=== PATIENT | female | born 1960 | race Two or more races ===

== ENCOUNTER 2024-06-29 13:27 | Inpatient (IN) | payer MEDICAID, OTHER ==
[~2024-06-29] VITALS: Ht 162.6 cm; Wt 101.7 kg
--- NOTE | 2024-06-29 14:13 | ED.PDOC ---
History of Present Illness HPI Comments 64-year-old female with PMHx HTN, DM presents with a chief complaint of dizziness x 1 day. Patient states that she has been feeling like she "wants to fall down" due to her dizziness. Patient mentions that she has been feeling this way since yesterday, but it has been worsening the past 3 hours. Patient denies actually falling and states that she caught herself before she could hit the ground. Patient denies LOC or head trauma. Chief Complaint: Dizziness Time Seen by MD: 13:58 Primary Care Provider: DENISE Santos Notes: Medications, Allergies Allergies: Coded Allergies: NO KNOWN ALLERGIES (Unverified , 06/29/24) Information Source: Patient Mode of Arrival: Ambulatory Severity: Moderate Timing: Hours Duration: Since onset Prehospital treatment: None Past Medical History PAST MEDICAL HISTORY: DM, HTN Surgical History: Denies all surgeries OUTREACH PROFESSIONAL History: No Pertinent OUTREACH PROFESSIONAL History Family History Family History: Unknown Social History Smoker: Non-Smoker Alcohol: Denies ETOH Use Drugs: Denies Drug Use Lives In: Home Constitutional: denies: chills, diaphoresis, fatigue, fever, malaise, sweats, weakness, others EENTM: denies: blurred vision, double vision, ear bleeding, ear discharge, ear drainage, ear pain, ear ringing, eye pain, eye redness, hearing loss, mouth pain, mouth swelling, nasal discharge, nose bleeding, nose congestion, nose pain, photophobia, tearing, throat pain, throat swelling, voice changes, others Respiratory: denies: cough, hemoptysis, orthopnea, SOB at rest, shortness of breath, SOB with excertion, stridor, wheezing, others Cardiovascular: denies: chest pain, dizzy spells, diaphoresis, Dyspnea on exertion, edema, irregular heart beat, left arm pain, lightheadedness, palpitations, PND, syncope, others Gastrointestinal: denies: abdomen distended, abdominal pain, blood streaked bowels, constipated, diarrhea, dysphagia, difficulty swallowing, hematemesis, melena, nausea, poor appetite, poor fluid intake, rectal bleeding, rectal pain, vomiting, others Genitourinary: denies: abnormal vagina bleeding, burning, dyspareunia, dysuria, flank pain, frequency, hematuria, incontinence, pain, , vagina d ischarge, urgency, others Neurological: reports: dizziness; denies: fainting, headache, left sided numbness, left sided weakness, numbness, paresthesia, pre-existing deficit, right sided numbness, right sided weakness, seizure, speech problems, tingling, tremors, weakness, others Musculoskeletal: denies: back pain, gout, joint pain, joint swelling, muscle pain, muscle stiffness, neck pain, others Integumetry: denies: bruises, change in color, change in hair/nails, dryness, laceration, lesions, lumps, rash, wounds, others Allergic/Immunocompromised: denies: Difficulty Healing, Frequent Infections, Hives, Itching, others Hematologic/Lymphatic: denies: anemia, blood clots, easy bleeding, easy bruising, swollen glands, others Endocrine: denies: excessive hunger, excessive sweating, excessive thirst, excessive urination, flushing, intolerance to cold, intolerance to heat, unexplained weight gain, unexplained weight loss, others Psychiatric: denies: anxiety, bipolar disorder, depression, hopeless, panic disorder, schizophrenia, sleepless, suicidal, others All Other Systems: Reviewed and Negative Physical Exam General Appearance: Moderate Distress, Normal HEENT: Normal ENT Inspection, Pharynx Normal, TMs Normal Neck: Full Range of Motion, Non-Tender, Normal, Normal Inspection Respiratory: Chest Non-Tender, Lungs Clear, No Accessory Muscle Use, No Respi ratory Distress, Normal Breath Sounds Cardiovascular: No Edema, No JVD, No Murmur, No Gallop, Normal Peripheral Pulses, Regular Rate/Rhythm Breast Exam: Deferred Gastrointestinal: No Organomegaly, Non Tender, No Pulsatile Mass, Normal Bowel Sounds, Soft Genitalia: Deferred Pelvic: Deferred Rectal: Deferred Extremities: No calf tenderness, Normal capillary refill, Normal inspection, Normal range of motion, Non-tender, No pedal edema Musculoskeletal : Apperance: Normal Neurologic: Alert, carton stenciler II-XII nml as Tested, No Motor Deficits, Normal Affect, Normal Mood, No Sensory Deficits Cerebellar Function: Normal Reflexes: Normal Skin: Dry, Normal Color, Warm Peripheral Pulses: 3+ Radial (R), 3+ Radial (L) Lymphatic: No Adenopathy Was a procedure done? Was a procedure done?: No Differential Dx Considerations may include: TIA Electrolyte imbalance X-Ray, Labs, Meds, VS Vital Signs Date Time Temp Pulse Resp B/P (MAP) Pulse Ox O2 Delivery O2 Flow Rate FiO2 06/29/24 13:58 98.1 69 20 187/107 (133) 97 06/29/24 13:54 68 Lab Test 06/29/24 13:50 Range/Units POC Glucose 136 H 70-106 mg/dl Patient alert. Unable to stand without falling. She is feeling weak. Blood pressure elevated. Was given clonidine. Blood sugar elevated. Heart rate within normal limits. Saturation pristine on room air. She will possibly need MRI. Explained to the patient. Continue monitoring. Time of 1ST Reevaluation: 14:28 Reevaluation 1ST: Unchanged Patient Education/Counseling: Diagnosis, Treatment, Prognosis Family Education/Counseling: Diagnosis, Treatment, Prognosis Departure 1 Departure Time of Disposition: 14:24 Impression: Primary Impression: Autonomic disorder Additional Impression: TIA (transient ischemic attack) Disposition: ADMITTED INPATIENT Admit to: Med Surg Condition: Guarded Critical Care Note Critical Care Time?: No Stability Stability form required: No Heart Score Heart Score: Heart Score Response (Comments) Value History N/A 0 EKG N/A 0 Age N/A 0 Risk Factors N/A 0 Troponin N/A 0 Total 0 I personally scribed for PRECIOUS SEO MD ([email or web address]) on 06/29/24 at 14:13. Electronically submitted by Randy Pascual ([email or web address]). PRECIOUS SEO MD Jun 29, 2024 14:13
[2024-06-29 14:36] LABS: Basophils # (auto) 0.1 10 ^3/uL (0-0.2); Basophils % (auto) 1.1 % (0.0-2.0); Eosinophils # (auto) 0.2 10 ^3/uL (0-0.8); Hematocrit 43.4 % (36.0-46.0); Hemoglobin 14.3 g/dL (12.2-16.2); Lymphocytes # (auto) 2.3 10 ^3/uL (0.4-5.4); Lymphocytes % (auto) 26.3 % (10.0-50.0); Mean Corpuscular Hemoglobin 26.4 pg (28.0-32.0); Mean Corpuscular Volume 79.9 fL (80.0-100.0); Monocytes # (auto) 0.7 10 ^3/uL (0-1.3); Monocytes % (auto) 7.7 % (0.0-12.0); Neutrophils # (auto) 5.6 10 ^3/uL (1.6-8.6); Neutrophils % (auto) 62.9 % (37.0-80.0); Nucleated Red Blood Cells % 0.1 %; Platelet Count (auto) 242 10^3/uL (140-450); Red Blood Cells 5.43 10^6/uL (4.0-5.20); Red Cell Distribution Width 14.9 % (11.8-14.3); White Blood Cell 8.9 10^3/uL (4.4-10.8)
[2024-06-29 14:50] LABS: Chloride 104 mmol/L (98-107); Potassium 4.5 mmol/L (3.5-5.1); Sodium 141 mmol/L (136-145)
[2024-06-29 14:51] LABS: Anion Gap 7 (5-15); Calcium 10.3 mg/dL (8.7-10.4); Carbon Dioxide 30 mmol/L (20-31)
[2024-06-29 14:56] LABS: BUN/Creatinine Ratio 25.3 (10.0-20.0); Blood Urea Nitrogen 21 mg/dL (9-23); Glucose 111 mg/dL (74-106)
--- NOTE | 2024-06-29 15:03 | DVH ---
EXAM: CT HEAD WITHOUT CONTRAST HISTORY: dizzy COMPARISON: None TECHNIQUE: Axial images of the head were obtained and reformatted in coronal and sagittal planes. All CT scans at this medical facility are performed using dose modulation techniques as appropriate t o a performed exam including the following: Automated exposure control was utilized; adjustment of th e MA and/or KV according to patient size; and use of iterative reconstruction technique. CT Dose: CTDI volume is 55 mGy. Dose-length product is 936 mGy*cm FINDINGS: There is no evidence of acute intracranial hemorrhage, mass, mass effect midline shift. There is no h ydrocephalus or extra-axial fluid collection. Hightower-white matter differentiation is maintained. Moderate opacification of the right maxillary sinus. The remaining visualized paranasal sinuses and m astoid air cells are clear. The calvarium is intact. IMPRESSION: 1. No acute intracranial process. HS:Y
[2024-06-29] MEDS: IOHEXOL 350 MG/ML 100ML IJ ONE (16:17)
[2024-06-29] MEDS: cloNIDine HCL 0.1 MG TAB PO ONE (16:41)
--- NOTE | 2024-06-29 16:59 | DVH ---
INDICATION: R/O STROKE COMPARISON: None TECHNIQUE:CTA head and neck with intravenous contrast. 3D/MIP image postprocessing was performed and images were used for interpretation and reporting. Radiation Dose Information: CT Dose: CTDI volume is 23.29 mGy. Dose-length product is 770 mGy*cm FINDINGS: CTA neck: Normal 3-vessel origin left-sided aortic arch. Mild atherosclerotic calcification of the aortic arch. Streak artifact from contrast within the right subclavian artery limits evaluation. Otherwise, the bi lateral subclavian arteries, bilateral common carotid arteries and bilateral cervical ICAs are unrema rkable. Bilateral cervical vertebral arteries unremarkable. CTA head: Bilateral ACAS, anterior communicating artery and bilateral MCAs are unremarkable. Mild atherosclerotic calcification of bilateral cavernous and supraclinoid ICAs. Otherwise, bilatera l intracranial ICAs are unremarkable. Bilateral steel burner, bilateral superior cerebellar arteries, basilar artery and bilateral intracranial anne tebral arteries are unremarkable. Left dominant intracranial vertebral artery. Moderate hypoplasia of the right distal intracranial vertebral artery after the origin of the PICA. The dural venous sinuses opacify normally with arachnoid granulation within the left transverse sinus .. No abnormal intracranial enhancement. Other: 1 cm right-sided level 2 lymph node which is most likely reactive. 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 Mucous retention cysts within the right maxillary sinus causing near-complete opacification. Mucous r etention cysts within the left maxillary sinus. Hemangioma within the C7 vertebral body. Schmorl node s of the superior endplate of C6. No destructive osseous lesions are noted. IMPRESSION: No hemodynamically significant stenosis involving the major intracranial and neck vessels.
[2024-06-29] MEDS ORDERED: NITROGLYCERIN 0.4 MG SL TAB SL PRN (18:00)
[2024-06-29] MEDS ORDERED: ONDANSETRON HCL 4 MG/2 ML VIAL IV PRN (18:00)
[2024-06-29] MEDS ORDERED: HYDROcodone-ACET 5/325MG TAB PO PRN (18:00)
[2024-06-29] MEDS ORDERED: ACETAMINOPHEN 325 MG TAB PO PRN (18:00)
[2024-06-29] MEDS ORDERED: MORPHINE SULFATE INJ 2 MG/ml SYRG IV PRN ×2 (18:00)
[2024-06-29] MEDS: SODIUM CHLORIDE 0.9% 1,000 ML IV SCH (19:15)
[2024-06-29] MEDS: ACETAMINOPHEN 325 MG TAB PO PRN (23:24)
[2024-06-29] MEDS: LISINOPRIL 20 MG TAB PO SCH (23:25)
[2024-06-30] VITALS (12 sets, daily range): BP systolic 107–165; BP diastolic 50–90; PULSE 54–96; RESP 16–20; TEMP 97.4–98.1; O2SAT 94–99
[2024-06-30] MEDS ORDERED: LISI30TA8 PO (01:03)
[2024-06-30] MEDS ORDERED: GAB100C PO (01:51)
--- NOTE | 2024-06-30 02:10 | DVHHPRES ---
History of Present Illness Resident Creating Document: CHINMAY CONTRERAS RESIDENT Reason for Visit: near syncope History of Present Illness 64-year-old female with a past medical history of hypertension (HTN) and diabetes mellitus (DM), presenting with dizziness for one day. The patient describes the sensation as "fading" or "wanting to fall," but denies complete loss of consciousness (LOC). She states she can catch herself before hitting the ground. She denies chest pain, shortness of breath, palpitations, or focal neurological deficits but does describe occasional sensations of her heart in her neck. Upon arrival, her blood pressure was 187/107 mmHg, which improved after resumption of her home Lisinopril. Given her symptoms, she was admitted to telemetry for further evaluation. During telemetry monitoring, she had episodes of sinus bradycardia in the 40s, which can explain with her dizziness. Given her symptomatic bradycardia, cardi ology was consulted for further evaluation. Past Medical History: Hypertension Diabetes Mellitus (Type 2) Surgical History: Denies any prior surgeries. Medications: Gabapentin Lisinopril Metformin Social History: Smoking: Non-smoker Alcohol: Denies alcohol use Drugs: Denies drug use Living Situation: Lives independently Review of Systems Constitutional: Yes: Weakness; No: Fever, Chills, Sweats, Malaise, Other Eyes: No: Pain, Vision change, Conjunctivae inflammation, Eyelid inflammation, Other, Redness ENT: No: Ear pain, Ear discharge, Nose pain, Nose discharge, Nose congestion, Mouth pain, Mouth swelling, Throat pain, Throat swelling, Other Respiratory: No: Cough, Dry, Shortness of breath, SOB with excertion, Wheezing, Hemoptysis, Pleuritic Pain, Sputum, Wheezing, Other Cardiovascular: No: Chest Pain, Palpitations, Orthopnea, Paroxysmal Noc. Dyspnea, Edema, Lt Headedness, Other Gastrointestinal: No: Nausea, Vomiting, Abdominal Pain, Diarrhea, Constipation, Melena, Hematochezia, Other Genitourinary: No Dysuria, No Frequency, No Incontinence, No Hematuria, No Retention, No Other Musculoskeletal: No: other, neck pain, shoulder pain, arm pain, back pain, hand pain, leg pain, foot pain Skin: No: Rash, Lesions, Jaundice, Bruising, Other Neurological: Weakness; No: Numbness, Incoordination, Change in speech, Confusion, Seizures, Other Allergies: Coded Allergies: NO KNOWN ALLERGIES (Unverified , 06/29/24) Medications Current Medications Medications Dose Ordered Sig/Marifer Route Start Time Stop Time Status Last Admin Dose Admin Lisinopril 30 mg DAILY PO 06/29/24 22:45 06/29/24 23:25 30 MG Acetaminophen 650 mg Q4HP PRN PO 06/29/24 22:45 06/29/24 23:24 650 MG Exam Vital Signs Vital Signs Date Time Temp Pulse Resp B/P (MAP) Pulse Ox O2 Delivery O2 Flow Rate FiO2 06/30/24 00:02 60 16 99 Room Air* 0 21 06/30/24 00:02 97.4 144/77 (99) 97.4 Exam General: Well-appearing, no acute distress. Vital Signs: BP improved with medication; heart rate noted to be in the 40s during telemetry. HEENT: No head trauma, normal extraocular movements. Cardiovascular: Bradycardic, regular rhythm, no murmurs, normal pulses. Respiratory: Normal breath sounds, no respiratory distress. Neurological: Alert, oriented, no focal deficits, no nystagmus. Labs/Xrays Labs Test 06/29/24 23:39 06/29/24 14:20 06/29/24 13:50 Range/Units Vitamin B12 Level 787 211-911 pg/mL White Blood Count 8.9 4.4-10.8 10^3/uL Red Blood Count 5.43 H 4.0-5.20 10^6/uL Hemoglobin 14.3 12.2-16.2 g/dL Hematocrit 43.4 36.0-46.0 % Mean Corpuscular Volume 79.9 L 80.0-100.0 fL Mean Corpuscular Hemoglobin 26.4 L 28.0-32.0 pg Mean Corpuscular Hemoglobin Concent 33.0 32.0-36.0 g/dL Red Cell Distribution Width 14.9 H 11.8-14.3 % Platelet Count 242 140-450 10^3/uL Mean Platelet Volume 8.9 6.9-10.8 fL Neutrophils (%) (Auto) 62.9 37.0-80.0 % Lymphocytes (%) (Auto) 26.3 10.0-50.0 % Monocytes (%) (Auto) 7.7 0.0-12.0 % Eosinophils (%) (Auto) 2.0 0.0-7.0 % Basophils (%) (Auto) 1.1 0.0-2.0 % Neutrophils # (Auto) 5.6 1.6-8.6 10 ^3/uL Lymphocytes # (Auto) 2.3 0.4-5.4 10 ^3/uL Monocytes # (Auto) 0.7 0-1.3 10 ^3/uL Eosinophils # (Auto) 0.2 0-0.8 10 ^3/uL Basophils # (Auto) 0.1 0-0.2 10 ^3/uL Nucleated Red Blood Cells 0.1 % Sodium Level 141 136-145 mmol/L Potassium Level 4.5 3.5-5.1 mmol/L Chloride Level 104 98-107 mmol/L Carbon Dioxide Level 30 20-31 mmol/L Anion Gap 7 5-15 Blood Urea Nitrogen 21 9-23 mg/dL Creatinine 0.83 0.550-1.02 mg/dL Glomerular Filtration Rate Calc 78 >90 mL/min BUN/Creatinine Ratio 25.3 H 10.0-20.0 Serum Glucose 111 H 74-106 mg/dL Hemoglobin A1c 6.5 H <5.7 % A1C Calcium Level 10.3 8.7-10.4 mg/dL Troponin I High Sensitivity < 3 L </=34 ng/L Thyroid Stimulating Hormone (TSH) 0.85 0.55-4.78 uIU/mL POC Glucose 136 H 70-106 mg/dl Assessment/Plan Assessment/Plan Diagnostic Workup: Labs: CBC: Normal CMP: Normal TSH: Normal HbA1c: 6.5% Imaging: CT Head No acute intracranial process. Moderate opacification of the right maxillary sinus. CTA Head & Neck (R/O Stroke): No significant stenosis in major intracranial or neck vessels. Mild atherosclerotic calcifications noted. No evidence of stroke or abnormal intracranial enhancement. EKG: sinus rhythm Telemetry Findings:Episodes of sinus bradycardia in the 40s, correlating with symptoms. Assessment & Plan: 64-year-old female with PMHx of HTN and DM, presenting with dizziness and near- syncope, found to have symptomatic sinus bradycardia. #Symptomatic Bradycardia Telemetry shows episodes of sinus bradycardia (HR 40s), correlating with dizziness. Patient received clonidine before, keep telemetry to see if the bradycardia improves Cardiology consulted for further evaluation ECHO ordered #Rule out syncope MRI pending #Hypertensive urgency BP improved on clonidine and home Lisinopril. Lisinopril home dose #Diabetes Mellitus Well controlled (A1C 6.5%). Hold on insulin due to bradycardia Case discussed with Dr Chin Plan discussed with: Patient, Other (rn) My Orders Orders - CHINMAY CONTRERAS RESIDENT Procedure Category Date Status Time Admit ADMIT 06/29/24 Transmitted 22:33 Cardiac DIET 06/30/24 Transmitted Diet-2gna,Lofat,Lochol Breakfast Orthostatic Vital ED NURSING 06/29/24 Transmitted Signs Brain Head Wo Contrast MRI 06/29/24 Logged 22:33 Echo 2d Mode Cardiac US 06/29/24 Logged DOP 22:33 Lisinopril Tablet PHA 06/29/24 In Process (Zestril Tablet) 22:45 Acetaminophen Tablet PHA 06/29/24 In Process (Tylenol Tablet) 22:45 Folate (Folic Acid) LAB 06/29/24 In Process 22:53 Vitamin B12 LAB 06/29/24 In Process 22:53 Date of Service: Jun 29, 2024 Billing Provider: KALEY CHIN MD Common Visit Codes: 21214-DULUHVT INP/OBS CARE (HIGH) Secondary Visit Codes: 39312-[id number] CARE PLAN 30 MINUTES CHINMAY CONTRERAS RESIDENT Jun 30, 2024 02:10 KALEY CHIN MD Jul 02, 2024 10:26
[2024-06-30] MEDS ORDERED: METF-370 PO (04:59)
[2024-06-30 06:42] LABS: Basophils # (auto) 0.1 10 ^3/uL (0-0.2); Eosinophils # (auto) 0.2 10 ^3/uL (0-0.8); Mean Corpuscular Volume 80.5 fL (80.0-100.0); Monocytes # (auto) 0.6 10 ^3/uL (0-1.3)
[2024-06-30 06:45] LABS: Basophils % (auto) 1.2 % (0.0-2.0); Eosinophils % (auto) 2.4 % (0.0-7.0); Hematocrit 39.6 % (36.0-46.0); Hemoglobin 13.2 g/dL (12.2-16.2); Lymphocytes # (auto) 2.4 10 ^3/uL (0.4-5.4); Mean Corpuscular Hemoglobin 26.9 pg (28.0-32.0); Mean Corpuscular Hgb Conc. 33.4 g/dL (32.0-36.0); Monocytes % (auto) 7.5 % (0.0-12.0); Neutrophils # (auto) 4.9 10 ^3/uL (1.6-8.6); Neutrophils % (auto) 59.9 % (37.0-80.0); Nucleated Red Blood Cells % 0.3 %; Platelet Count (auto) 214 10^3/uL (140-450); Red Blood Cells 4.91 10^6/uL (4.0-5.20); Red Cell Distribution Width 14.9 % (11.8-14.3); White Blood Cell 8.2 10^3/uL (4.4-10.8)
[2024-06-30] MEDS ORDERED: DEXTROSE (50%) 50ML SYRG IV PRN (07:00)
[2024-06-30] MEDS: InsuLIN REG 1unit/0.01ml Soln (100units/ml) SC SCH (07:00)
[2024-06-30 07:07] LABS: Alanine Aminotransferase 15 U/L (7-40); Albumin 4.2 g/dL (3.2-4.8); Alkaline Phosphatase 71 U/L (46-116); Anion Gap 8 (5-15); BUN/Creatinine Ratio 21.9 (10.0-20.0); Blood Urea Nitrogen 16 mg/dL (9-23); Calcium 9.3 mg/dL (8.7-10.4); Carbon Dioxide 27 mmol/L (20-31); Chloride 105 mmol/L (98-107); Potassium 4.3 mmol/L (3.5-5.1); Sodium 140 mmol/L (136-145); Total Protein 6.7 g/dL (5.7-8.2)
[2024-06-30 07:08] LABS: Aspartate Aminotransferase 11 U/L (13-40); Bilirubin, Total 0.2 mg/dL (0.2-1.0); Glucose 116 mg/dL (74-106)
[2024-06-30] MEDS: ACCU-CHEK COMFORT CURVE STRIP VI SCH (07:19)
[2024-06-30] MEDS ORDERED: ENOXAPARIN SOD 40 MG/0.4 ML SYRINGE SC SCH (10:00)
--- NOTE | 2024-06-30 11:56 | DVH ---
PROCEDURE: MRI BRAIN HEAD WO CONTRAST INDICATION: rule out stroke EXAM DATE: 06/30/2024 10:42 AM COMPARISON: CT head dated 06/29/2024 TECHNIQUE: MRI of the brain without intravenous contrast. FINDINGS: Diffusion weighted images of the brain demonstrate no evidence of acute infarction. There is no evidence of acute intracranial hemorrhage, extra-axial collection, mass effect, midline s hift, herniation or hydrocephalus. The ventricles, sulci and cisterns appear age appropriate. There is nonspecific periventricular and subcortical T2/FLAIR hyperintense white matter changes. Diff erential includes: Demyelinating disease, chronic microangiopathic change, residua of migraine headac hes or other postinflammatory residua. There are no signal abnormalities on the susceptibility weighted sequences. The major vascular flow voids are present. The visualized paranasal sinuses and mastoid air cells are clear. The surrounding soft tissues and o sseous structures are unremarkable. Moderate mucosal opacification of the right maxillary sinus. IMPRESSION: No evidence of acute infarction, intracranial hemorrhage, mass effect or hydrocephalus. There is nonspecific periventricular and subcortical T2/FLAIR hyperintense white matter changes. Diff erential includes: Demyelinating disease, chronic microangiopathic change, residua of migraine headac hes or other postinflammatory residua.
--- NOTE | 2024-06-30 12:28 | DVHINCON2 ---
Date Seen: Jun 30, 2024 Referring Physician MD Jones Reason for Consultation Symptomatic bradycardia History of Present Illness This is a pleasant 64-year-old female who presented to the emergency room with a chief complaint of dizziness for three days. Patient reports she was watching TV when she developed left eye visual disturbance which dissipated promptly. Afterwards she was driving to [employer] when she experienced an episode of transient dizziness with a few seconds. She also complains of left lower extremity paresthesia. States approximately six months ago she experienced a similar event. Denies chest pain, palpitations, diaphoresis, or syncopal events. Upon arrival to the emergency room she was found with a systolic blood pressure in the 180s mmHg. States she is compliant with her lisinopril therapy at home. She underwent a 12 lead electrocardiogram revealing a normal sinus rhythm. classroom monitor reviewed indicating a sinus bradycardia rhythm with a heart rate as low as 40 bpm at rest. There were no high-degree AV blocks or sinus pauses identified. During assessment the patient experienced a transient episode of dizziness with portable monitor revealing a normal sinus rhythm with a HR at 75 bpm. Significant medical history includes hypertension on lisinopril therapy, [id number]-kahaijqtj diabetes mellitus, peripheral neuropathy, and morbid obesity. Past Medical History Past medical history reviewed. No other significant than mentioned above. Past Surgical History Tonsillectomy BTL Family History: Diabetes mellitus G8 FATHER G8 BROTHER G8 SISTER Family History Family history reviewed. Not significant for cardiac disease. Social History Denies the use of illicit drugs, alcohol, or tobacco use. Allergies: Coded Allergies: NO KNOWN ALLERGIES (Unverified , 06/29/24) Home Meds Reported Medications Metformin Hydrochloride (Metformin Hcl) 500 Mg Tab, 2 TAB PO BID for 30 Days, MG 06/30/24 Gabapentin (Gabapentin) 100 Mg Cap, 1 CAP PO BID 06/30/24 Lisinopril (Lisinopril) 30 Mg Tab, 1 TAB PO DAILY 06/30/24 Home Meds Home medications reviewed. Current Medications Current Medications Medications (Trade) Dose Ordered Sig/Marifer Route PRN Reason Start Time Stop Time Status Last Admin Sodium Chloride 1,000 ml @ 120 mls/hr Q8H20M IV 06/29/24 18:00 06/29/24 20:04 DC Acetaminophen/ Hydrocodone Bitart ([place] 5/325MG Tab) 1 tab Q4HP PRN PO MODERATE PAIN (4-6 PAIN SCALE) 06/29/24 18:00 06/29/24 20:04 DC Ondansetron HCl (Zofran) 4 mg Q4HP PRN IV NAUSEA / VOMITING 06/29/24 18:00 06/29/24 20:04 DC Enoxaparin Sodium (Lovenox) 40 mg DAILY SC 06/30/24 10:00 06/29/24 20:04 DC Acetaminophen (Tylenol Tablet) 650 mg Q6HP PRN PO PAIN SCALE 1-3 OR TEMP>100.4 06/29/24 18:00 06/29/24 20:04 DC Morphine Sulfate 2 mg Q4HPRN PRN IV SEVERE PAIN (7-10 PAIN SCALE) 06/29/24 18:00 06/29/24 20:04 DC Nitroglycerin (Ntrostat Sublingual) 0.4 mg Q5MINP PRN SL FOR CHEST PAIN 06/29/24 18:00 06/29/24 20:04 DC Morphine Sulfate 2 mg Q30M PRN IV FOR CHEST PAIN 06/29/24 18:00 06/29/24 20:04 DC Lisinopril (Zestril Tablet) 30 mg DAILY PO 06/29/24 22:45 06/29/24 23:25 Acetaminophen (Tylenol Tablet) 650 mg Q4HP PRN PO PAIN SCALE 1-3 OR TEMP>100.4 06/29/24 22:45 06/29/24 23:24 Diagnostic Test (Pha) (Accu-Chek Comfort Curve T) 1 strip ACHS 06/30/24 07:00 06/30/24 11:47 Insulin Human Regular (InsuLIN R) ACHS SC 06/30/24 07:00 Dextrose 50 ml UD PRN IV Blood Sugar LESS THAN 60 06/30/24 07:00 Review of Systems Constitutional: No symptom reported Ears, Nose, & Throat: No symptom reported Eyes: No symptom reported Neurological: Dizziness, left eye visual disturbance Pulmonary/Respiratory: No symptom reported Cardiovascular: No symptom reported Gastrointestinal: No symptom reported Genitourinary: No symptom reported Musculoskeletal: LLE paresthesia Skin: No symptom reported Psychiatric: No symptom reported Endocrine: No symptom reported Hemotologic/Lymphatic: No symptom reported Vital Signs Vital Signs Date Time Temp Pulse Resp B/P (MAP) Pulse Ox O2 Delivery O2 Flow Rate FiO2 06/30/24 09:00 98.0 71 18 132/63 (86) 97 98.0 06/30/24 08:15 Room Air* 0 21 Physical Exam General Appearance: Cooperative. Well developed. Morbidly obese. In no acute distress Head Exam: Normal inspection Neck Exam: Normal inspection. Non-tender. Normal alignment Pulmonary/Respiratory: Chest non-tender. Clear bilateral breath sounds Cardiovascular/Chest: Regular rate and rhythm. S1, S2. NS status/sinus br adycardia. No murmurs. No JVD. Peripheral Pulses: 2+ Radial (R). 2+ Radial (L). 2+ Pedal (R). 2+ Pedal (L) Abdominal Exam: Normal bowel sounds. Soft. Nontender. No hepatospenomegaly. No masses Ankle Exam: Negative ankle edema Lower extremities: Negative lower extremity edema Neuro/Mental Status: A&O x4. Coherent Thoughts/Psych: Normal thought pattern. Appropriate mood and affect. Good judgement and insight Appearance: In no acute distress Skin Exam: Normal inspection. Normal color. Warm. Dry Labs/Diagnostic Data Labs Test 06/30/24 06:04 06/29/24 23:39 06/29/24 14:20 06/29/24 13:50 Range/Units White Blood Count 8.2 4.4-10.8 10^3/uL Red Blood Count 4.91 4.0-5.20 10^6/uL Hemoglobin 13.2 12.2-16.2 g/dL Hematocrit 39.6 36.0-46.0 % Mean Corpuscular Volume 80.5 80.0-100.0 fL Mean Corpuscular Hemoglobin 26.9 L 28.0-32.0 pg Mean Corpuscular Hemoglobin Concent 33.4 32.0-36.0 g/dL Red Cell Distribution Width 14.9 H 11.8-14.3 % Platelet Count 214 140-450 10^3/uL Mean Platelet Volume 8.8 6.9-10.8 fL Neutrophils (%) (Auto) 59.9 37.0-80.0 % Lymphocytes (%) (Auto) 29.0 10.0-50.0 % Monocytes (%) (Auto) 7.5 0.0-12.0 % Eosinophils (%) (Auto) 2.4 0.0-7.0 % Basophils (%) (Auto) 1.2 0.0-2.0 % Neutrophils # (Auto) 4.9 1.6-8.6 10 ^3/uL Lymphocytes # (Auto) 2.4 0.4-5.4 10 ^3/uL Monocytes # (Auto) 0.6 0-1.3 10 ^3/uL Eosinophils # (Auto) 0.2 0-0.8 10 ^3/uL Basophils # (Auto) 0.1 0-0.2 10 ^3/uL Nucleated Red Blood Cells 0.3 % Sodium Level 140 136-145 mmol/L Potassium Level 4.3 3.5-5.1 mmol/L Chloride Level 105 98-107 mmol/L Carbon Dioxide Level 27 20-31 mmol/L Anion Gap 8 5-15 Blood Urea Nitrogen 16 9-23 mg/dL Creatinine 0.73 0.550-1.02 mg/dL Glomerular Filtration Rate Calc 91 >90 mL/min BUN/Creatinine Ratio 21.9 H 10.0-20.0 Serum Glucose 116 H 74-106 mg/dL Calcium Level 9.3 8.7-10.4 mg/dL Total Bilirubin 0.2 0.2-1.0 mg/dL Aspartate Amino Transferase (AST) 11 L 13-40 U/L Alanine Aminotransferase (ALT) 15 7-40 U/L Alkaline Phosphatase 71 46-116 U/L Total Protein 6.7 5.7-8.2 g/dL Albumin 4.2 3.2-4.8 g/dL Vitamin B12 Level 787 211-911 pg/mL Hemoglobin A1c 6.5 H <5.7 % A1C Troponin I High Sensitivity < 3 L </=34 ng/L Thyroid Stimulating Hormone (TSH) 0.85 0.55-4.78 uIU/mL POC Glucose 136 H 70-106 mg/dl Assessment Sinus bradycardia Hypertensive urgency Rule out structural heart disease Zui-lazaqlu-vcljpkegc diabetes mellitus Peripheral neuropathy Morbid obesity Plan/Recommendation (Dr. Solis) The patient presents with sinus bradycardia at rest and an event of dizziness during assessment with portable hall monitor revealing a heart rate in the 70s bpm. classroom monitor reviewed without evidence of high-degree atrioventricular blocks or sinus pauses. Doubt symptomatic bradycardia. Symptoms highly suspected to be secondary to hypertensive urgency. Continue aggressive blood pressure control and avoid AV horacio blocking agents. We recommend an outpatient event monitor for further evaluation if deemed necessary. Patient reports she is scheduled to follow up with Dr. Anna, associate media planner, on 07/03/24. We will continue further cardiac evaluation with a transthoracic echocardiogram to rule out structural heart disease. In the setting of an unremarkable echocardiogram, there is no further cardiac workup indicated at this time. Thank you for allowing us to participate in this patient's care. Please call if you have any questions or concerns. This medical document was created using an electronic medical record system with voice recognition software and computerized dictation system. Although this document has been carefully reviewed, there might still be some phonetic and typographical errors. Occasional wrong-word or ``sound-alike substitutions may have occurred due to the inherent limitations of voice recognition software. These areas are purely typographical due to imperfections of the software programs and do not reflect any compromise in the patient's medical care. Please read the chart carefully and recognize, using context, where these substitutions have occurred. Plan discussed with: Patient, Other NYHA Physical activity limitations: NA Date of Service: Jun 30, 2024 Billing Provider: OBIE CEJA Cardiology Common Codes: [id number] INP/OBS CARE (High) OBIE CEJA Jun 30, 2024 12:28
[2024-06-30] MEDS: ENOXAPARIN SOD 40 MG/0.4 ML SYRINGE SC ONE (12:57)
[2024-06-30] MEDS: hydrALAZINE HCL 20 MG/ML VL IV PRN (12:58)
--- NOTE | 2024-06-30 16:23 | DVHSR ---
APPROVED REPORT EXAM: Two-dimensional and M-mode echocardiogram with Doppler and color Doppler. Blood Pressure: 138/76 mmHg INDICATION Rule out CHF RISK FACTORS Height: 5'4", Weight: 221 DIMENSIONS LVDd3.9 (3.8-5.7cm)LA (2D)4.1 (1.9-4.0cm)Aortic Root3.2 (2.0-3.7cm) LVDs2.6 (2.5-4.0cm)LA (MM) (1.9-4.0cm)Aortic Cusp Exc1.4 (1.5-2.0cm) EF (%) 65.0 (55-70%)Rt. Atrium3.7 (1.9-4.0cm)Asc. Aorta cm IVSd1.1 (0.7-1.1cm)RV (D)4.1 (1.8-2.4cm) PWd1.0 (0.7-1.1cm) Mitral Valve MitralMitral Stenosis E wave0.87m/sMV Mean GR.mmHg A wave1.21m/sMV Peak GR.mmHg E/A ratio0.72D MVAcm2 DECEL [id number] 1/2 Timems Aortic Valve Aortic ValveAortic Stenosis V11.83m/Radha Mean GR.12mmHg V22.41m/Radha Peak GR.23mmHg LVOT Diameter1.9 (1.8-2.4cm)Doppler AVA2.15cm2 Pulmonic Valve V21.33m/s Tricuspid Valve TR Velocity3.00m/s [id number] Conclusion Technically good study. Sinus rhythm. Left atrial enlargement. RV enlargement. Mild aortic sclerosis. Mild mitral annular calcification. Left ventricular function is preserved at 60% with normal RV function. [id number] TR. No pericardial effusion masses or vegetations
[2024-06-30] MEDS ORDERED: hydrALAZINE HCL 20 MG/ML VL IV PRN (17:30)
--- NOTE | 2024-06-30 19:08 | DVHPN2 ---
Subjective 06/30 on admit there was concern of possibly this being a stroke and MRI is done which is negative for stroke but all it was positive for demyelination enhancements which will require neurology review. Cardiology is on board echo is being done. Cardiology believes this is asymptomatic bradycardia patient appears to be doing well in terms of Cardiology aspect and cardiology signs of. Echo pending. Patient has severe lower extremity diabetic neuropathy which could be piece of the puzzle. We will control pain with gabapentin incomplete workup. PT eval pending. Reviewed: H&P Changes from previous H/P or p: No Changes General: Per HPI Eyes: No Pain, No Vision change, No Conjunctivae inflammation, No Eyelid inflammation, No Other, No Redness ENT: No Ear pain, No Ear discharge, No Nose pain, No Nose discharge, No Nose congestion, No Mouth pain, No Mouth swelling, No Throat pain, No Throat swelling, No Other Cardiovascular: No Chest Pain, No Palpitations, No Orthopnea, No Paroxysmal Noc. Dyspnea, No Edema, No Lt Headedness, No Other Respiratory: No Cough, No Dry, No Shortness of breath, No SOB with excertion, No Wheezing, No Hemoptysis, No Pleuritic Pain, No Sputum, No Other Gastrointestinal: No Nausea, No Vomiting, No Abdominal Pain, No Diarrhea, No Constipation, No Melena, No Hematochezia, No Other Genitourinary: No Dysuria, No Frequency, No Incontinence, No Hematuria, No Retention, No Other Musculoskeletal: No other, No neck pain, No shoulder pain, No arm pain, No back pain, No hand pain, No leg pain, No foot pain Skin: No Rash, No Lesions, No Jaundice, No Bruising, No Other Objective Vitals Vital Signs Date Time Temp Pulse Resp B/P (MAP) Pulse Ox O2 Delivery O2 Flow Rate FiO2 06/30/24 17:00 97.5 66 20 165/90 (115) 98 97.5 06/30/24 08:15 Room Air* 0 21 Intake/Output Intake and Output 06/30/24 07:00 Intake Total 450 ml Balance 450 ml Intake Oral 450 ml # Voids 3 Exam GEN: Healthy appearing, well-developed, NAD. HEENT: NC/AT; MMM. CV: RRR, no m/r/g. LUNGS: CTAB, no w/r/c. ABD: Soft, NT/ND, NBS, no masses or organomegaly. EXT: skin Warm, well perfused. no rashes. No clubbing, cyanosis, or edema. NEURO: Ambulating with no limitations. No focal deficits. Medications Current Medications Medications Dose Ordered Sig/Marifer Route Start Time Stop Time Status Last Admin Dose Admin Lisinopril 30 mg DAILY PO 06/29/24 22:45 06/29/24 23:25 30 MG Acetaminophen 650 mg Q4HP PRN PO 06/29/24 22:45 06/30/24 17:58 650 MG Diagnostic Test (Pha) 1 strip ACHS 06/30/24 07:00 06/30/24 16:52 1 STRIP Insulin Human Regular ACHS SC 06/30/24 07:00 Dextrose 50 ml UD PRN IV 06/30/24 07:00 Enoxaparin Sodium 40 mg DAILY SC 07/01/24 10:00 Hydralazine HCl 10 mg Q6HR PRN IV 06/30/24 17:30 Gabapentin 300 mg TID PO 06/30/24 22:00 Laboratory Results Laboratory Tests 06/30/24 06:04 Chemistry Test 06/30/24 06:04 Albumin 4.2 g/dL (3.2-4.8) Calcium Level 9.3 mg/dL (8.7-10.4) Total Protein 6.7 g/dL (5.7-8.2) LFT Test 06/30/24 06:04 Alanine Aminotransferase (ALT) 15 U/L (7-40) Alkaline Phosphatase 71 U/L (46-116) Aspartate Amino Transferase (AST) 11 U/L (13-40) L Total Bilirubin 0.2 mg/dL (0.2-1.0) Labs and/or images reviewed: Labs reviewed by me, Image(s) reviewed by me Assessment/Plan Assessment/Plan 06/30 on admit there was concern of possibly this being a stroke and MRI is done which is negative for stroke but all it was positive for demyelination enhancements which will require neurology review. Cardiology is on board echo is being done. Cardiology believes this is asymptomatic bradycardia patient appears to be doing well in terms of Cardiology aspect and cardiology signs of. Echo pending. Patient has severe lower extremity diabetic neuropathy which could be piece of the puzzle. We will control pain with gabapentin incomplete workup. PT eval pending. Sinus bradycardia, asymptomatic MRI imaging enhancements, stroke ruled out Hypertensive urgency Rule out structural heart disease Drr-gcyxnir-ooxvpepqh diabetes mellitus Peripheral neuropathy Morbid obesity - continue pain management -start gabapentin 300 t.i.d. Continuing diet Neurology evaluation PT evaluation pending Echo pending. Diet diabetic DVT prophylaxis with Lovenox GI prophylaxis tolerating diet Med tele Full code Plan discussed with: Patient My Orders Orders - KYLER TRISTAN MD Procedure Category Date Status Time * Neurology Consult CONS 06/30/24 Transmitted 17:05 Hydralazine Injection PHA 06/30/24 In Process (Apresoline Inject 17:30 Gabapentin Capsule PHA 06/30/24 In Process (Neurontin Capsule) 22:00 Date of Service: Jun 30, 2024 Billing Provider: KYLER TRISTAN MD Common Visit Codes: [id number] INP/OBS CARE(HIGH) KYLER TRISTAN MD Jun 30, 2024 19:08
[2024-06-30] MEDS: GABAPENTIN 300 MG CAP PO SCH (21:59)
--- NOTE | 2024-06-30 22:34 | DVHINCON2 ---
Date of service: Jun 30, [address] Robert Vidales Reason for Consultation MR with abnormal fighting History of Present Illness Ms. Reid is a 64 years old right-handed female with a history of hypertension, diabetes, she came to the [facility] on 06/29/2024 with a chief company of passing out. At that time, she was alert and fully oriented, she provided the following history As a workup for her syncopal event/dizziness, her MRI brain scan showed small amount of scattered T2/FLAIR abnormality Since 06/26/2024, the patient was had for dizzy spells, one was on 06/27/2024, one was on 06/28/24, two was on 06/29/2024, the spells happened when she was sitting, standing, received associated with blurry vision, hot flash, increased sweating, chest pain, and two of them the patient was passed out for a few seconds, waking up conscious to everything Telemetry captured bradycardia with heart rate @ 40/min Since around 08/2023, every night the patient was has a discomfort in the legs with the urge to move, and movement does not help the symptoms briefly, as a result, she can not fall asleep easily. She was given gabapentin 100 mg hs at home which does not help She was thinks she may snore, her sleep is non-refreshing, she has excessive daytime fatigue and sleepiness In the hospital, bradycardia captured with heart rate down to 40 per minute CBC, 06/30/2024: Unremarkable CMP, 06/30/2024: Unremarkable Vitamin B12, 06/29/2019 5:787 TSH, 06/29/2024: 0.85 Echocardiogram, 06/30/2024: Technically good study. Sinus rhythm. Left atrial enlargement. RV enlargement. Mild aortic sclerosis. Mild mitral annular calcification. Left ventricular function is preserved at 60% with normal RV function. [id number] TR. No pericardial effusion masses or vegetations MRI head, 06/30/2024: No evidence of acute infarction, intracranial hemorrhage, mass effect or hydrocephalus. There is nonspecific periventricular and subcortical T2/FLAIR hyperintense white matter changes. Differential includes: Demyelinating disease, chronic microangiopathic change, residua of migraine headaches or other postinflammatory residua Past Medical History Hypertension, diabetes, obesity Past Surgical History Tonsillectomy Family History: Diabetes mellitus G8 FATHER G8 BROTHER G8 SISTER Family History Diabetes Social History She was no history of tobacco smoking, alcohol/drug abuse Allergies: Coded Allergies: NO KNOWN ALLERGIES (Unverified , 06/29/24) Home Meds Reported Medications Metformin Hydrochloride (Metformin Hcl) 500 Mg Tab, 2 TAB PO BID for 30 Days, MG 06/30/24 Gabapentin (Gabapentin) 100 Mg Cap, 1 CAP PO BID 06/30/24 Lisinopril (Lisinopril) 30 Mg Tab, 1 TAB PO DAILY 06/30/24 Current Medications Current Medications Medications (Trade) Dose Ordered Sig/Marifer Route PRN Reason Start Time Stop Time Status Last Admin Enoxaparin Sodium (Lovenox) 40 mg DAILY SC 06/30/24 10:00 06/29/24 20:04 DC Lisinopril (Zestril Tablet) 30 mg DAILY PO 06/29/24 22:45 06/29/24 23:25 Acetaminophen (Tylenol Tablet) 650 mg Q4HP PRN PO PAIN SCALE 1-3 OR TEMP>100.4 06/29/24 22:45 06/30/24 17:58 Diagnostic Test (Pha) (Accu-Chek Comfort Curve T) 1 strip ACHS 06/30/24 07:00 06/30/24 22:19 Insulin Human Regular (InsuLIN R) ACHS SC 06/30/24 07:00 Dextrose 50 ml UD PRN IV Blood Sugar LESS THAN 60 06/30/24 07:00 Hydralazine HCl (Apresoline Injection) 10 mg Q6HR PRN IV SBP>150 06/30/24 12:50 06/30/24 17:31 DC 06/30/24 12:58 Enoxaparin Sodium (Lovenox) 40 mg DAILY SC 07/01/24 10:00 Hydralazine HCl (Apresoline Injection) 10 mg Q6HR PRN IV SBP>170 06/30/24 17:30 Gabapentin (Neurontin Capsule) 300 mg TID PO 06/30/24 22:00 06/30/24 21:59 Review of Systems As above, the other systems are negative Vital Signs Vital Signs Date Time Temp Pulse Resp B/P (MAP) Pulse Ox O2 Delivery O2 Flow Rate FiO2 06/30/24 21:00 75 156/85 (108) 06/30/24 21:00 97.7 18 95 97.7 06/30/24 08:15 Room Air* 0 21 Physical Exam GENERAL EXAM: General: the patient is well developed and nourished. No acute distress. HEENT: Normocephalic, neck is supple, no carotid bruits. No mass RESPIRATORY: Normal respiratory effort with symmetrical lung expansion. Lungs clear to auscultation. CARDIOVASCULAR: Regular rate and rhythm with no murmurs. S1, S2. ABDOMEN: Soft, nontender, normal bowel sound NEUROLOGICAL: MENTAL STATUS: Awake and alert. Oriented to person, place, time and general circumstances. Able to give personal history. SPEECH, LANGUAGE, HIGHER CORTICAL FUNCTION: no aphasia or dysathria. CRANIAL NERVES: #2: Intact visual pike to confrontation. The optic discs were sharp. #3,4,6: Pupils are equal, round and reactive. EOMs full and conjugate. No nystagmus. #5: Facial sensation intact in all three divisions bilaterally. Mandibular strength intact. #7: Facial muscles symmetrical and strength intact. #8: Hearing grossly normal to voice. #9,10: Uvula and soft palate rise in the midline. Swallow and voice are normal. #11: Trapezius and sternomastoid strength intact bilaterally. #12: Tongue midline. No fasciculations or atrophy. SENSATION: Sensation to touch and pinprick is normal. MOTOR: Normal tone in the upper and lower extremity. Normal muscle bulk. No fasciculations. No abnormal movements or posturing. Muscle strength of the major groups in the upper extremities is 5/5. Muscle strength of the major groups in the lower extremities is 5/5. REFLEXES: Deep tendon reflexes are symmetrical. No pathological reflexes. CEREBELLAR/COORDINATION: Finger to nose is normal bilaterally. GAIT/STATION: deferred. Labs/Diagnostic Data Labs Test 06/30/24 22:06 06/30/24 06:04 06/29/24 23:39 06/29/24 14:20 Range/Units POC Glucose 141 H 70-106 mg/dl White Blood Count 8.2 4.4-10.8 10^3/uL Red Blood Count 4.91 4.0-5.20 10^6/uL Hemoglobin 13.2 12.2-16.2 g/dL Hematocrit 39.6 36.0-46.0 % Mean Corpuscular Volume 80.5 80.0-100.0 fL Mean Corpuscular Hemoglobin 26.9 L 28.0-32.0 pg Mean Corpuscular Hemoglobin Concent 33.4 32.0-36.0 g/dL Red Cell Distribution Width 14.9 H 11.8-14.3 % Platelet Count 214 140-450 10^3/uL Mean Platelet Volume 8.8 6.9-10.8 fL Neutrophils (%) (Auto) 59.9 37.0-80.0 % Lymphocytes (%) (Auto) 29.0 10.0-50.0 % Monocytes (%) (Auto) 7.5 0.0-12.0 % Eosinophils (%) (Auto) 2.4 0.0-7.0 % Basophils (%) (Auto) 1.2 0.0-2.0 % Neutrophils # (Auto) 4.9 1.6-8.6 10 ^3/uL Lymphocytes # (Auto) 2.4 0.4-5.4 10 ^3/uL Monocytes # (Auto) 0.6 0-1.3 10 ^3/uL Eosinophils # (Auto) 0.2 0-0.8 10 ^3/uL Basophils # (Auto) 0.1 0-0.2 10 ^3/uL Nucleated Red Blood Cells 0.3 % Sodium Level 140 136-145 mmol/L Potassium Level 4.3 3.5-5.1 mmol/L Chloride Level 105 98-107 mmol/L Carbon Dioxide Level 27 20-31 mmol/L Anion Gap 8 5-15 Blood Urea Nitrogen 16 9-23 mg/dL Creatinine 0.73 0.550-1.02 mg/dL Glomerular Filtration Rate Calc 91 >90 mL/min BUN/Creatinine Ratio 21.9 H 10.0-20.0 Serum Glucose 116 H 74-106 mg/dL Calcium Level 9.3 8.7-10.4 mg/dL Total Bilirubin 0.2 0.2-1.0 mg/dL Aspartate Amino Transferase (AST) 11 L 13-40 U/L Alanine Aminotransferase (ALT) 15 7-40 U/L Alkaline Phosphatase 71 46-116 U/L Total Protein 6.7 5.7-8.2 g/dL Albumin 4.2 3.2-4.8 g/dL Vitamin B12 Level 787 211-911 pg/mL Hemoglobin A1c 6.5 H <5.7 % A1C Troponin I High Sensitivity < 3 L </=34 ng/L Thyroid Stimulating Hormone (TSH) 0.85 0.55-4.78 uIU/mL Assessment Abnormal brain scan with mildly increased T2/FLAIR lesion Given the history of hypertension, diabetes, and age of 64, this is likely an incidental fighting Dizziness/passing out Syncope secondary to bradycardia Partial complex seizure, less likely Restless leg syndrome Rule out iron deficiency Insomnia Hypersomnia Obesity Rule out Sleep-related breathing disorder Plan/Recommendation Monitoring Supportive treatment Telemetry EEG Iron panel Ferritin Discontinue gabapentin (she was obese) A trial of pramipexole 0.25 mg in the evening A trial of APAP in the hospital Weight control Sleep hygiene discussed Cardiology evaluation Further address her sleep-related breathing disorder as outpatient Plan discussed with: Patient, Other ELSA BREWER MD Jun 30, 2024 22:34
[2024-06-30 23:58] LABS: % Iron Saturation 17.8 % (15-50)
[2024-07-01] VITALS (12 sets, daily range): BP systolic 116–150; BP diastolic 57–88; PULSE 45–84; RESP 16–18; TEMP 97.5–98.7; O2SAT 95–99
[2024-07-01 08:27] LABS: Basophils # (auto) 0.1 10 ^3/uL (0-0.2); Basophils % (auto) 1.1 % (0.0-2.0); Eosinophils # (auto) 0.1 10 ^3/uL (0-0.8); Hematocrit 42.6 % (36.0-46.0); Hemoglobin 14.2 g/dL (12.2-16.2); Lymphocytes # (auto) 2.3 10 ^3/uL (0.4-5.4); Lymphocytes % (auto) 32.8 % (10.0-50.0); Mean Corpuscular Hemoglobin 26.6 pg (28.0-32.0); Mean Corpuscular Hgb Conc. 33.3 g/dL (32.0-36.0); Monocytes # (auto) 0.5 10 ^3/uL (0-1.3); Monocytes % (auto) 7.4 % (0.0-12.0); Neutrophils % (auto) 56.7 % (37.0-80.0); Nucleated Red Blood Cells % 0.2 %; Platelet Count (auto) 221 10^3/uL (140-450); Red Blood Cells 5.32 10^6/uL (4.0-5.20); Red Cell Distribution Width 15.1 % (11.8-14.3); White Blood Cell 7.1 10^3/uL (4.4-10.8)
[2024-07-01 08:35] LABS: Alanine Aminotransferase 20 U/L (7-40); Albumin 4.3 g/dL (3.2-4.8); Alkaline Phosphatase 72 U/L (46-116); Anion Gap 11 (5-15); BUN/Creatinine Ratio 19.7 (10.0-20.0); Blood Urea Nitrogen 14 mg/dL (9-23); Calcium 9.8 mg/dL (8.7-10.4); Carbon Dioxide 23 mmol/L (20-31); Chloride 105 mmol/L (98-107); Potassium 4.1 mmol/L (3.5-5.1); Sodium 139 mmol/L (136-145)
[2024-07-01 08:38] LABS: Aspartate Aminotransferase 9 U/L (13-40); Bilirubin, Total 0.3 mg/dL (0.2-1.0); Glucose 109 mg/dL (74-106)
[2024-07-01] MEDS: ENOXAPARIN SOD 40 MG/0.4 ML SYRINGE SC SCH (09:15)
[2024-07-01] MEDS: PRAMIPEXOLE DIHYDROCHLORIDE MO 0.25 MG TAB PO SCH (22:15)
[2024-07-01] MEDS: MELATONIN 5 MG TAB PO PRN (22:15)
[2024-07-02] VITALS (10 sets, daily range): BP systolic 129–159; BP diastolic 63–91; PULSE 66–74; RESP 18; TEMP 97.3–98.4; O2SAT 93–99
[2024-07-02] MEDS ORDERED: GAB100C PO (17:15)
[2024-07-02] MEDS ORDERED: ROPI5TAB20 PO (17:15)
--- NOTE | 2024-07-02 17:28 | DVHPN2 ---
Subjective NOTE FOR 07/01/2024 UPDATE 07/01 06/30 on admit there was concern of possibly this being a stroke and MRI is done which is negative for stroke but all it was positive for demyelination enhancements which will require neurology review. Cardiology is on board echo is being done. Cardiology believes this is asymptomatic bradycardia patient appears to be doing well in terms of Cardiology aspect and cardiology signs of. Echo pending. Patient has severe lower extremity diabetic neuropathy which could be piece of the puzzle. We will control pain with gabapentin incomplete workup. PT eval pending. 07/01 patient improving, dizziness improving. Today plan for neurology evaluation and PT eval. Cardiology has signed off no concern for symptomatic bradycardia Reviewed: H&P Changes from previous H/P or p: No Changes General: Per HPI Eyes: No Pain, No Vision change, No Conjunctivae inflammation, No Eyelid inflammation, No Other, No Redness ENT: No Ear pain, No Ear discharge, No Nose pain, No Nose discharge, No Nose congestion, No Mouth pain, No Mouth swelling, No Throat pain, No Throat swelling, No Other Cardiovascular: No Chest Pain, No Palpitations, No Orthopnea, No Paroxysmal Noc. Dyspnea, No Edema, No Lt Headedness, No Other Respiratory: No Cough, No Dry, No Shortness of breath, No SOB with excertion, No Wheezing, No Hemoptysis, No Pleuritic Pain, No Sputum, No Other Gastrointestinal: No Nausea, No Vomiting, No Abdominal Pain, No Diarrhea, No Constipation, No Melena, No Hematochezia, No Other Genitourinary: No Dysuria, No Frequency, No Incontinence, No Hematuria, No Retention, No Other Musculoskeletal: No other, No neck pain, No shoulder pain, No arm pain, No back pain, No hand pain, No leg pain, No foot pain Skin: No Rash, No Lesions, No Jaundice, No Bruising, No Other Objective Vitals Vital Signs Date Time Temp Pulse Resp B/P (MAP) Pulse Ox O2 Delivery O2 Flow Rate FiO2 07/02/24 13:21 132/89 (103) 07/02/24 13:19 98.3 68 18 95 98.3 07/02/24 08:05 Room Air* 0 21 Intake/Output Intake and Output 07/02/24 07:00 Intake Total 1964 ml Balance 1964 ml Intake Oral 1964 ml # Voids 8 # Bowel Movements 1 Exam GEN: Healthy appearing, well-developed, NAD. HEENT: NC/AT; MMM. CV: RRR, no m/r/g. LUNGS: CTAB, no w/r/c. ABD: Soft, NT/ND, NBS, no masses or organomegaly. EXT: skin Warm, well perfused. no rashes. No clubbing, cyanosis, or edema. NEURO: Ambulating with no limitations. No focal deficits. Medications Current Medications Medications Dose Ordered Sig/Marifer Route Start Time Stop Time Status Last Admin Dose Admin Lisinopril 30 mg DAILY PO 06/29/24 22:45 07/02/24 09:03 30 MG Acetaminophen 650 mg Q4HP PRN PO 06/29/24 22:45 07/02/24 09:02 650 MG Diagnostic Test (Pha) 1 strip ACHS 06/30/24 07:00 07/02/24 11:30 1 STRIP Insulin Human Regular ACHS SC 06/30/24 07:00 07/02/24 12:06 2 UNITS Dextrose 50 ml UD PRN IV 06/30/24 07:00 Enoxaparin Sodium 40 mg DAILY SC 07/01/24 10:00 07/02/24 09:02 40 MG Hydralazine HCl 10 mg Q6HR PRN IV 06/30/24 17:30 Pramipexole Dihydrochloride 0.25 mg HS PO 07/01/24 22:00 07/01/24 22:15 0.25 MG Melatonin 10 mg HS PRN PO 07/01/24 20:45 07/01/24 22:15 10 MG Laboratory Results Laboratory Tests 07/01/24 07:08 Labs and/or images reviewed: Labs reviewed by me, Image(s) reviewed by me Assessment/Plan Assessment/Plan 07/01 patient improving, dizziness improving. Today plan for neurology evaluation and PT eval. Cardiology has signed off no concern for symptomatic bradycardia Sinus bradycardia, asymptomatic MRI imaging enhancements, stroke ruled out Hypertensive urgency Rule out structural heart disease Mfk-dkmfxxf-kazmzliuk diabetes mellitus Peripheral neuropathy Morbid obesity echo shows: Left atrial enlargement. RV enlargement. Mild aortic sclerosis. Mild mitral annular calcification. Left ventricular function is preserved at 60% with normal RV function. Uevf-xh-djyebsgm TR. - continue pain management -start gabapentin 300 t.i.d. -Continuing diet -Neurology evaluation -PT evaluation Diet diabetic DVT prophylaxis with Lovenox GI prophylaxis tolerating diet Med tele Full code (Note for 07/01/2024) Plan discussed with: Patient Date of Service: Jul 01, 2024 Billing Provider: KYLER TRISTAN MD Common Visit Codes: [id number] INP/OBS CARE(HIGH) KYLER TRISTAN MD Jul 02, 2024 17:28
--- NOTE | 2024-07-02 17:30 | DVHDS2 ---
Discharge Summary Date of Admission Jun 29, 2024 at 17:52 Date of Discharge: Jul 02, 2024 Labs/Diagnostic Data: Laboratory Results Test 07/01/24 22:10 07/01/24 07:08 06/30/24 06:04 06/29/24 23:39 POC Glucose 120 mg/dl (70-106) White Blood Count 7.1 10^3/uL (4.4-10.8) Red Blood Count 5.32 10^6/uL (4.0-5.20) Hemoglobin 14.2 g/dL (12.2-16.2) Hematocrit 42.6 % (36.0-46.0) Mean Corpuscular Volume 80.0 fL (80.0-100.0) Mean Corpuscular Hemoglobin 26.6 pg (28.0-32.0) Mean Corpuscular Hemoglobin Concent 33.3 g/dL (32.0-36.0) Red Cell Distribution Width 15.1 % (11.8-14.3) Platelet Count 221 10^3/uL (140-450) Mean Platelet Volume 9.2 fL (6.9-10.8) Neutrophils (%) (Auto) 56.7 % (37.0-80.0) Lymphocytes (%) (Auto) 32.8 % (10.0-50.0) Monocytes (%) (Auto) 7.4 % (0.0-12.0) Eosinophils (%) (Auto) 2.0 % (0.0-7.0) Basophils (%) (Auto) 1.1 % (0.0-2.0) Neutrophils # (Auto) 4.0 10 ^3/uL (1.6-8.6) Lymphocytes # (Auto) 2.3 10 ^3/uL (0.4-5.4) Monocytes # (Auto) 0.5 10 ^3/uL (0-1.3) Eosinophils # (Auto) 0.1 10 ^3/uL (0-0.8) Basophils # (Auto) 0.1 10 ^3/uL (0-0.2) Nucleated Red Blood Cells 0.2 % Sodium Level 139 mmol/L (136-145) Potassium Level 4.1 mmol/L (3.5-5.1) Chloride Level 105 mmol/L (98-107) Carbon Dioxide Level 23 mmol/L (20-31) Anion Gap 11 (5-15) Blood Urea Nitrogen 14 mg/dL (9-23) Creatinine 0.71 mg/dL (0.550-1.02) Glomerular Filtration Rate Calc 94 mL/min (>90) BUN/Creatinine Ratio 19.7 (10.0-20.0) Serum Glucose 109 mg/dL (74-106) Calcium Level 9.8 mg/dL (8.7-10.4) Total Bilirubin 0.3 mg/dL (0.2-1.0) Aspartate Amino Transferase (AST) 9 U/L (13-40) Alanine Aminotransferase (ALT) 20 U/L (7-40) Alkaline Phosphatase 72 U/L (46-116) Total Protein 7.0 g/dL (5.7-8.2) Albumin 4.3 g/dL (3.2-4.8) Iron Level 54 ug/dL (50-170) Total Iron Binding Capacity 303 ug/dL (250-425) Percent Iron Saturation 17.8 % (15-50) Ferritin 45.0 ng/mL (10-291) Vitamin B12 Level 787 pg/mL (211-911) Test 06/29/24 14:20 Hemoglobin A1c 6.5 % A1C (<5.7) Troponin I High Sensitivity < 3 ng/L (</=34) Thyroid Stimulating Hormone (TSH) 0.85 uIU/mL (0.55-4.78) Other Laboratory Tests 07/01/24 07:08 Brief Hx & Hospital Course: HPI:64-year-old female with a past medical history of hypertension (HTN) and diabetes mellitus (DM), presenting with dizziness for one day. The patient describes the sensation as "fading" or "wanting to fall," but denies complete loss of consciousness (LOC). She states she can catch herself before hitting the ground. She denies chest pain, shortness of breath, palpitations, or focal neurological deficits but does describe occasional sensations of her heart in her neck. summary: Upon arrival, her blood pressure was 187/107 mmHg, which improved after resumption of her home Lisinopril. Given her symptoms, she was admitted to telemetry for further evaluation. During telemetry monitoring, she had episodes of sinus bradycardia in the 40s, which can explain with her dizziness. Given her symptomatic bradycardia, cardiology was consulted for further evaluation. Cardiology believes it was asymptomatic bradycardia. echo shows: Left atrial enlargement. RV enlargement. Mild aortic sclerosis. Mild mitral annular calcification. Left ventricular function is preserved at 60% with normal RV function. Epob-nu-qvksvlei TR. MRI done stroke ruled out, but MRI showing some imaging enhancements. CT head negative for any intracranial abnormalities. Neurology consulted. Neurology consulted to evaluate abnormal findings in MRI. MRI has increased T2/FLAIR lesion and neurology believes this is likely incidental finding given the history of hypertension diabetes, hypertension, and age more than 65. There is concern for restless leg syndrome, iron labs are normal, started on pramipexole which works well. Likely symptoms are due to diabetic neuropathy. PT consulted and patient does well with PT and uses walker. Patient is stable to discharge as per plan below. Diagnosis: Fall likely due to diabetic neuropathy Sinus bradycardia, asymptomatic MRI imaging enhancements, stroke ruled out Hypertensive urgency Rule out structural heart disease Msi-jradoix-mxsktjnmu diabetes mellitus Peripheral neuropathy Morbid obesity Discharge plan: Hydrate well Increase gabapentin to 2 tablets twice daily Start ropinirole 0.25 Nightly Follow up with PCP to review discharge . PCP to evaluate likely need for stress test outpatient. Continue other home medications (lisinopril, metformin) Condition at Discharge: Fair Final Diagnosis/Problems List Fall likely due to diabetic neuropathy Sinus bradycardia, asymptomatic MRI imaging enhancements, stroke ruled out Hypertensive urgency Rule out structural heart disease Awf-hyhojyz-dveaczvib diabetes mellitus Peripheral neuropathy Morbid obesity Discharge Disposition: Home Discharge Instruct/Medications Diet: Consistent carbohydrate Activity: No Restrictions, As Tolerated Follow Up/Referral: pcp Medications: below Discharge Statement: "Patient was advised to return to the ER or call 911 if any headaches, dizziness, shortness of breath, chest pain, abdominal pain, bleeding, fevers, or worsening of medical condition. Patient was counseled about treatment plan, medications, possible side effects, patientverbalized understanding. All questions were answered to the best of my ability. This discharge took greater then 30 minutes in planning, reviewing documentation, counseling the patient, and discussing with other team members." Date of Service: Jul 02, 2024 Billing Provider: KYLER TRISTAN MD Common Visit Codes: [id number] DISCH DAY >30min KYLER TRISTAN MD Jul 02, 2024 17:30
--- NOTE | 2024-07-03 14:25 | ECG ---
[facility] Test Date: 2024-06-29 Test Time: 13:54:16 Pat Name: JOSUÉ MENDES Department: ER Room: 0296T Gender: F Counter Sales Person: LESIA : 1960 Requested By: [employer] Order Number: [id number] Reading MD: Measurements Intervals [place] Rate: 68 P: 59 RI: 163 QRS: 59 QRSD: 106 T: 18 QT: 393 QTc: 418 Interpretive Statements Sinus rhythm Please click the below link to view image of tracing.
== END 2024-07-02 18:38 | disposition home or self-care (01) | DRG 74 ==
LOC: ER 13:27 → OVERFLOW 17:52 → TELE-WESTW 23:36
PROVIDERS: ADMIT Internal Medicine; ATTEND Internal Medicine
PROC: 5A09357 Assistance with Respiratory Ventilation, Less than 24 Consecutive Hours, Continuous Positive Airway Pressure (ICD-10-PCS; principal; 2024-06-30)
PROC: 5A09357 Assistance with Respiratory Ventilation, Less than 24 Consecutive Hours, Continuous Positive Airway Pressure (ICD-10-PCS; 2024-07-01)
DX: E11.40 Type 2 diabetes mellitus with diabetic neuropathy, unspecified (principal); I16.0 Hypertensive urgency; G90.89 Other disorders of autonomic nervous system; E66.01 Morbid (severe) obesity due to excess calories; R00.1 Bradycardia, unspecified; I10 Essential (primary) hypertension; G25.81 Restless legs syndrome; G47.00 Insomnia, unspecified; G47.10 Hypersomnia, unspecified; I70.0 Atherosclerosis of aorta; I34.81 Nonrheumatic mitral (valve) annulus calcification; Z83.3 Family history of diabetes mellitus; Z79.84 Long term (current) use of oral hypoglycemic drugs; Z79.1 Long term (current) use of non-steroidal anti-inflammatories (NSAID); Z79.899 Other long term (current) drug therapy; Z68.38 Body mass index [BMI] 38.0-38.9, adult
CPT/HCPCS: 36415; 70450; 70496; 70498; 70551; 80048; 80053; 82607; 82728; 82746; 82962; 83036; 83540; 83550; 84443; 84484; 85025; 93005; 93306; 94640; 94660; 97110; 97116; 97163; 97530; G0378; J1815